=== PATIENT | male | born 1940 | race African-American/Black ===

== ENCOUNTER 2021-02-26 16:37 | Inpatient (IN) | payer MEDICARE, OTHER ==
[~2021-02-26] VITALS: Ht 182.2 cm; Wt 75.8 kg
[2021-02-26] MEDS ORDERED: LEVETIRACETAM 1,000 MG in SODIUM CHLORIDE 0.9% 100 ML IV SCH (17:30)
[2021-02-26 17:51] LABS: BASOPHILS % 0.4 % (0.0-2.0); EOSINOPHILS % 0.7 % (0.0-5.0); HEMATOCRIT. 37.8 % (42.0-52.0); HEMOGLOBIN. 12.7 g/dL (14.0-18.0); MEAN CORPUSCULAR HEMOGLOBIN 32.5 pg (28.0-32.0); MEAN CORPUSCULAR VOLUME 96.6 fL (80.0-94.0); MEAN PLATELET VOLUME 7.4 fl (7.4-10.4); MONOCYTES % 9.7 % (2.0-8.0); NEUTROPHILS % 75.2 % (40.0-76.0); PLATELET 188 x1000/uL (130-400); RED BLOOD CELL COUNT 3.91 mill/uL (4.7-6.1); RED CELL DISTRIBUTION WIDTH 15.4 % (11.6-14.6)
[2021-02-26 17:58] LABS: CHLORIDE 101 mEq/L (98-107)
[2021-02-26 18:05] LABS: ETHANOL BLOOD < 10 mg/dL
[2021-02-26 18:06] LABS: CREATINE KINASE 33 IU/L (39-308)
[2021-02-26 18:31] LABS: CLARITY URINE CLOUDY (CLEAR); COLOR URINE YELLOW (YELLOW); KETONES URINE NEGATIVE (NEGATIVE); LEUKOCYTE ESTERASE URINE 3+ (NEGATIVE); NITRITE URINE NEGATIVE (NEGATIVE); OCCULT BLOOD URINE 3+ (NEGATIVE); PROTEIN URINE 1+ (NEGATIVE)
[2021-02-26] MEDS ORDERED: FUROSEMIDE 40MG/4ML VIAL IVP NR (18:45)
[2021-02-26 18:53] LABS: *AMPHETAMINES SCREEN URINE NEGATIVE (NEGATIVE); *BARBITURATES SCREEN URINE NEGATIVE (NEGATIVE); *BENZODIAZEPINES SCREEN URINE NEGATIVE (NEGATIVE); *COCAINE SCREEN URINE NEGATIVE (NEGATIVE); METHADONE URINE SCREEN NEGATIVE (NEGATIVE); OPIATES URINE SCREEN NEGATIVE (NEGATIVE)
[2021-02-26 18:54] LABS: CANNABINOID URINE SCREEN NEGATIVE (NEGATIVE); PHENCYCLIDINE URINE SCREEN NEGATIVE (NEGATIVE)
[2021-02-26] MEDS ORDERED: CEFTRIAXONE 1 G PREMIX 50 ML IV ONE (19:45)
[2021-02-26] MEDS ORDERED: LORAZEPAM 2MG/ML CPJ IV PRN (21:00)
[2021-02-26] MEDS ORDERED: ONDANSETRON HCL 4MG/2ML INJ IV PRN (21:00)
[2021-02-26] MEDS ORDERED: DEXT 5%/0.45% NACL 1000ML 1,000 ML IV SCH (21:00)
[2021-02-26] MEDS ORDERED: ACETAMINOPHEN 325MG TABLET PO PRN (21:00)
[2021-02-26] MEDS ORDERED: CLONIDINE 0.1MG TABLET PO PRN (21:00)
[2021-02-26] MEDS ORDERED: CEFTRIAXONE 1 G PREMIX 50 ML IV SCH (21:00)
[2021-02-26] MEDS ORDERED: MAGNESIUM/ALUMINUM HYDROXIDE/SIMETHICONE 30ML UDC PO PRN (21:00)
[2021-02-26] MEDS: ENOXAPARIN 30MG/0.3ML SYR SUBCUT SCH (21:29)
[2021-02-27] VITALS: BP 137/98
[2021-02-27 08:00] VITALS: BP 147/48
[2021-02-27] MEDS ORDERED: FUROSEMIDE 40MG/4ML VIAL IV SCH (09:00)
[2021-02-27] MEDS: LEVETIRACETAM 500MG TABLET PO SCH ×2 (10:38→23:44)
[2021-02-27 12:00] VITALS: BP 108/64
[2021-02-27 16:00] VITALS: BP 140/80
[2021-02-27 16:04] LABS: BASOPHILS % 0.5 % (0.0-2.0); EOSINOPHILS % 1.4 % (0.0-5.0); HEMATOCRIT. 37.2 % (42.0-52.0); HEMOGLOBIN. 12.2 g/dL (14.0-18.0); LYMPHOCYTES % 14.1 % (20.0-50.0); MEAN CORPUSCULAR HEMOGLOBIN 32.2 pg (28.0-32.0); MEAN PLATELET VOLUME 7.9 fl (7.4-10.4); MONOCYTES % 10.9 % (2.0-8.0); NEUTROPHILS % 73.1 % (40.0-76.0); PLATELET 189 x1000/uL (130-400); RED CELL DISTRIBUTION WIDTH 15.2 % (11.6-14.6)
[2021-02-27 16:10] LABS: CHLORIDE 103 mEq/L (98-107)
[2021-02-27 18:23] LABS: VITAMIN B12 SERUM 756 pg/mL (211-911)
[2021-02-27 20:00] VITALS: BP 107/64
[2021-02-27] MEDS: ENOXAPARIN 30MG/0.3ML SYR SUBCUT SCH (23:44)
[2021-02-27] MEDS: CEFTRIAXONE 1,000 MG in DEXTROSE 5% WATER 50 ML IV SCH (23:46)
[2021-02-28] VITALS: BP 116/65
[2021-02-28 04:00] VITALS: BP 118/68
[2021-02-28 08:00] VITALS: BP 134/69
[2021-02-28] MEDS: LEVETIRACETAM 500MG TABLET PO SCH ×2 (09:46→22:24)
[2021-02-28 12:00] VITALS: BP 119/72
[2021-02-28 16:00] VITALS: BP 132/78
[2021-02-28 20:00] VITALS: BP 122/66
[2021-02-28] MEDS: CEFTRIAXONE 1,000 MG in DEXTROSE 5% WATER 50 ML IV SCH (20:00)
[2021-02-28] MEDS: ENOXAPARIN 30MG/0.3ML SYR SUBCUT SCH (22:24)
[2021-03-01] VITALS: BP 128/76
[2021-03-01 04:00] VITALS: BP 148/89
[2021-03-01 08:00] VITALS: BP 138/78
[2021-03-01] MEDS: LEVETIRACETAM 500MG TABLET PO SCH ×2 (08:23→21:27)
[2021-03-01 12:00] VITALS: BP 149/85
[2021-03-01 12:20] LABS: BASOPHILS % 0.4 % (0.0-2.0); EOSINOPHILS % 1.7 % (0.0-5.0); HEMATOCRIT. 35.1 % (42.0-52.0); HEMOGLOBIN. 11.8 g/dL (14.0-18.0); MEAN CORPUSCULAR HEMOGLOBIN 32.3 pg (28.0-32.0); MEAN CORPUSCULAR VOLUME 96.3 fL (80.0-94.0); MEAN PLATELET VOLUME 7.6 fl (7.4-10.4); MONOCYTES % 12.1 % (2.0-8.0); NEUTROPHILS % 61.8 % (40.0-76.0); PLATELET 173 x1000/uL (130-400); RED BLOOD CELL COUNT 3.65 mill/uL (4.7-6.1); RED CELL DISTRIBUTION WIDTH 15.3 % (11.6-14.6)
[2021-03-01 12:36] LABS: CHLORIDE 103 mEq/L (98-107)
[2021-03-01 16:00] VITALS: BP 137/68
[2021-03-01 20:00] VITALS: BP 112/68
[2021-03-01] MEDS: CEFTRIAXONE 1,000 MG in DEXTROSE 5% WATER 50 ML IV SCH (21:27)
[2021-03-01] MEDS: ENOXAPARIN 40MG/0.4ML SYR SUBCUT SCH (21:28)
[2021-03-02] VITALS: BP 146/81
[2021-03-02 04:00] VITALS: BP 141/70
[2021-03-02 08:00] VITALS: BP 144/90
[2021-03-02] MEDS: LEVETIRACETAM 500MG TABLET PO SCH ×2 (10:00→21:35)
[2021-03-02] MEDS: NITROFURANTOIN 100MG M/M CAPSULE PO SCH ×2 (11:33→21:35)
[2021-03-02 11:46] VITALS: BP 153/95
[2021-03-02 16:00] VITALS: BP 130/78
[2021-03-02 20:00] VITALS: BP 149/87
[2021-03-02] MEDS: ENOXAPARIN 40MG/0.4ML SYR SUBCUT SCH (21:36)
[2021-03-03] VITALS (7 sets, daily range): BP systolic 128–158; BP diastolic 79–109
[2021-03-03] MEDS: LEVETIRACETAM 500MG TABLET PO SCH ×2 (08:19→21:36)
[2021-03-03] MEDS: NITROFURANTOIN 100MG M/M CAPSULE PO SCH ×2 (08:20→21:36)
[2021-03-03] MEDS: AMLODIPINE 5MG TABLET PO SCH ×2 (12:10→21:36)
[2021-03-03] MEDS: ENOXAPARIN 40MG/0.4ML SYR SUBCUT SCH (21:38)
== END 2021-03-03 23:20 | DRG 100 ==
LOC: ER 16:37 → ENRESERV 22:12 → 8WST 02-27 00:14
PROVIDERS: ADMIT Hospitalist; ATTEND Hospitalist
PROC: 02HV33Z Insertion of Infusion Device into Superior Vena Cava, Percutaneous Approach (ICD-10-PCS; 2021-03-01)
PROC: B548ZZA Ultrasonography of Superior Vena Cava, Guidance (ICD-10-PCS; 2021-03-01)
PROC: 4A10X4Z Monitoring of Central Nervous Electrical Activity, External Approach (ICD-10-PCS; principal; 2021-03-02)
DX: R56.9 Unspecified convulsions (principal); E43 Unspecified severe protein-calorie malnutrition; N17.9 Acute kidney failure, unspecified; N39.0 Urinary tract infection, site not specified; R32 Unspecified urinary incontinence; Z20.822 Contact with and (suspected) exposure to COVID-19; F01.50 Vascular dementia, unspecified severity, without behavioral disturbance, psychotic disturbance, mood disturbance, and anxiety; Z68.22 Body mass index [BMI] 22.0-22.9, adult
CPT/HCPCS: 36415; 71045; 76937; 80053; 80305; 80320; 81003; 82140; 82542; 82550; 82607; 82962; 83880; 84439; 84443; 84484; 85025; 87077; 87186; 87426; 93306; 93970; 95816; 97162; 99285; C1725; C1893; J0696; J1650; J1940; J1953; J7050; J7060; G0480

== ENCOUNTER 2021-03-03 23:20 | Inpatient (IN) | payer MEDICARE, OTHER ==
[~2021-03-03] VITALS: Ht 180.3 cm; Wt 90.3 kg
[2021-03-03 23:25] VITALS: BP 129/83
[2021-03-04] MEDS ORDERED: CLONIDINE 0.1MG TABLET PO PRN
[2021-03-04] MEDS ORDERED: ONDANSETRON 4MG ODT PO PRN
[2021-03-04] MEDS ORDERED: ACETAMINOPHEN 325MG TABLET PO PRN
[2021-03-04 08:30] VITALS: BP 109/76
[2021-03-04] MEDS: LEVETIRACETAM 500MG TABLET PO SCH ×2 (09:05→20:47)
[2021-03-04] MEDS: NITROFURANTOIN 100MG M/M CAPSULE PO SCH ×2 (09:05→20:47)
[2021-03-04] MEDS: AMLODIPINE 5MG TABLET PO SCH ×2 (09:06→20:47)
[2021-03-04] MEDS ORDERED: NA PHOS,M-B/NA PHOS,DI-BA ENEMA 118ML PR NR (15:45)
[2021-03-04] MEDS: DOCUSATE SODIUM 100MG CAPSULE PO SCH (17:00)
[2021-03-04 20:00] VITALS: BP 128/87
[2021-03-04] MEDS: ENOXAPARIN 40MG/0.4ML SYR SUBCUT SCH (20:49)
[2021-03-05 08:00] VITALS: BP 121/66
[2021-03-05] MEDS: DOCUSATE SODIUM 100MG CAPSULE PO SCH ×2 (08:53→18:20)
[2021-03-05] MEDS: LEVETIRACETAM 500MG TABLET PO SCH ×2 (08:53→21:57)
[2021-03-05] MEDS: NITROFURANTOIN 100MG M/M CAPSULE PO SCH ×2 (08:55→21:57)
[2021-03-05] MEDS: AMLODIPINE 5MG TABLET PO SCH ×2 (08:57→21:59)
[2021-03-05] MEDS: ENOXAPARIN 40MG/0.4ML SYR SUBCUT SCH (08:57)
[2021-03-05] MEDS: BISACODYL 5MG TABLET PO PRN (08:58)
[2021-03-05] MEDS: MAGNESIUM/ALUMINUM HYDROXIDE/SIMETHICONE 30ML UDC PO PRN (08:58)
[2021-03-05] MEDS ORDERED: NA PHOS,M-B/NA PHOS,DI-BA ENEMA 118ML PR PRN (14:00)
[2021-03-05 18:07] VITALS: BP 129/83
[2021-03-05 20:00] VITALS: BP 117/73
[2021-03-06] MEDS ORDERED: APIX5TAB4 PO (01:27)
[2021-03-06] MEDS ORDERED: METO-396 PO (01:27)
[2021-03-06] MEDS ORDERED: ATOR-2 PO (01:27)
[2021-03-06] MEDS ORDERED: PANT40TA51 PO (01:27)
[2021-03-06] MEDS ORDERED: MINE50OI TP (01:27)
[2021-03-06] MEDS ORDERED: AMI2 PO (01:27)
[2021-03-06 07:53] VITALS: BP 151/81
[2021-03-06] MEDS: LEVETIRACETAM 500MG TABLET PO SCH ×2 (09:27→21:23)
[2021-03-06] MEDS: AMLODIPINE 5MG TABLET PO SCH ×2 (09:28→21:00)
[2021-03-06] MEDS: NITROFURANTOIN 100MG M/M CAPSULE PO SCH ×2 (09:28→21:23)
[2021-03-06] MEDS: DOCUSATE SODIUM 100MG CAPSULE PO SCH ×2 (09:29→16:18)
[2021-03-06] MEDS: ENOXAPARIN 40MG/0.4ML SYR SUBCUT SCH (09:37)
[2021-03-06 20:00] VITALS: BP 108/57
[2021-03-07 08:11] VITALS: BP 137/78
[2021-03-07 08:31] LABS: BASOPHILS % 0.5 % (0.0-2.0); EOSINOPHILS % 1.4 % (0.0-5.0); HEMATOCRIT. 35.7 % (42.0-52.0); LYMPHOCYTES % 24.7 % (20.0-50.0); MEAN CORPUSCULAR VOLUME 95.4 fL (80.0-94.0); MEAN PLATELET VOLUME 7.6 fl (7.4-10.4); MONOCYTES % 9.5 % (2.0-8.0); NEUTROPHILS % 63.9 % (40.0-76.0); PLATELET 133 x1000/uL (130-400); RED BLOOD CELL COUNT 3.75 mill/uL (4.7-6.1); RED CELL DISTRIBUTION WIDTH 15.9 % (11.6-14.6)
[2021-03-07] MEDS: LEVETIRACETAM 500MG TABLET PO SCH ×2 (11:26→20:12)
[2021-03-07] MEDS: NITROFURANTOIN 100MG M/M CAPSULE PO SCH ×2 (11:26→20:12)
[2021-03-07] MEDS: AMLODIPINE 5MG TABLET PO SCH ×2 (11:26→20:14)
[2021-03-07] MEDS: DOCUSATE SODIUM 100MG CAPSULE PO SCH ×2 (11:26→17:48)
[2021-03-07 20:00] VITALS: BP 103/74
[2021-03-07] MEDS: ATORVASTATIN CALCIUM 40MG TABLET PO SCH (23:00)
[2021-03-07] MEDS: AMIODARONE HCL 200 MG TABLET PO SCH (23:00)
[2021-03-08] MEDS: PANTOPRAZOLE 40MG DR TABLET PO SCH (06:28)
[2021-03-08 08:00] VITALS: BP 121/82
[2021-03-08] MEDS: PANTOT AC/MIN OIL/PET HY-PHL OINT (AQUAPHOR) TOP SCH (09:00)
[2021-03-08] MEDS ORDERED: METOPROLOL SUCCINATE 50MG ER TABLET PO SCH (09:00)
[2021-03-08] MEDS: NITROFURANTOIN 100MG M/M CAPSULE PO SCH ×2 (10:10→21:45)
[2021-03-08] MEDS: DOCUSATE SODIUM 100MG CAPSULE PO SCH ×2 (10:10→17:00)
[2021-03-08] MEDS: AMLODIPINE 5MG TABLET PO SCH ×2 (10:11→21:45)
[2021-03-08] MEDS: LEVETIRACETAM 500MG TABLET PO SCH ×2 (10:11→21:45)
[2021-03-08] MEDS: AMIODARONE HCL 200 MG TABLET PO SCH (10:11)
[2021-03-08] MEDS: METOPROLOL TARTRATE 25MG TABLET PO SCH ×2 (10:11→21:45)
[2021-03-08 20:00] VITALS: BP 108/57
[2021-03-08] MEDS: ATORVASTATIN CALCIUM 40MG TABLET PO SCH (21:45)
[2021-03-09] MEDS: PANTOPRAZOLE 40MG DR TABLET PO SCH (06:01)
[2021-03-09 08:00] VITALS: BP 127/82
[2021-03-09] MEDS: NITROFURANTOIN 100MG M/M CAPSULE PO SCH (09:00)
[2021-03-09] MEDS: DOCUSATE SODIUM 100MG CAPSULE PO SCH ×2 (10:19→17:20)
[2021-03-09] MEDS: LEVETIRACETAM 500MG TABLET PO SCH ×2 (10:19→21:24)
[2021-03-09] MEDS: AMIODARONE HCL 200 MG TABLET PO SCH (10:19)
[2021-03-09] MEDS: AMLODIPINE 5MG TABLET PO SCH ×2 (10:20→21:24)
[2021-03-09] MEDS: METOPROLOL TARTRATE 25MG TABLET PO SCH ×2 (10:21→21:25)
[2021-03-09] MEDS: PANTOT AC/MIN OIL/PET HY-PHL OINT (AQUAPHOR) TOP SCH (10:28)
[2021-03-09] MEDS: ATORVASTATIN CALCIUM 40MG TABLET PO SCH (21:25)
[2021-03-10] MEDS: FAMOTIDINE 20MG TABLET PO SCH (06:30)
[2021-03-10 07:55] VITALS: BP 117/70
[2021-03-10] MEDS: DOCUSATE SODIUM 100MG CAPSULE PO SCH ×2 (10:00→17:26)
[2021-03-10] MEDS: LEVETIRACETAM 500MG TABLET PO SCH ×2 (10:01→21:00)
[2021-03-10] MEDS: METOPROLOL TARTRATE 25MG TABLET PO SCH ×2 (10:02→20:51)
[2021-03-10] MEDS: AMIODARONE HCL 200 MG TABLET PO SCH (10:03)
[2021-03-10] MEDS: AMLODIPINE 5MG TABLET PO SCH ×2 (10:03→20:52)
[2021-03-10] MEDS: MAGNESIUM/ALUMINUM HYDROXIDE/SIMETHICONE 30ML UDC PO PRN (10:04)
[2021-03-10] MEDS: BISACODYL 5MG TABLET PO PRN (10:04)
[2021-03-10] MEDS: PANTOT AC/MIN OIL/PET HY-PHL OINT (AQUAPHOR) TOP SCH (10:05)
[2021-03-10 20:00] VITALS: BP 106/46
[2021-03-10] MEDS: ATORVASTATIN CALCIUM 40MG TABLET PO SCH (21:00)
[2021-03-11] MEDS: FAMOTIDINE 20MG TABLET PO SCH (06:09)
[2021-03-11 08:00] VITALS: BP 137/96
[2021-03-11] MEDS: LEVETIRACETAM 500MG TABLET PO SCH ×2 (08:18→21:01)
[2021-03-11] MEDS: DOCUSATE SODIUM 100MG CAPSULE PO SCH ×2 (08:18→16:48)
[2021-03-11] MEDS: METOPROLOL TARTRATE 25MG TABLET PO SCH ×2 (08:18→20:56)
[2021-03-11] MEDS: AMIODARONE HCL 200 MG TABLET PO SCH (08:22)
[2021-03-11] MEDS: AMLODIPINE 5MG TABLET PO SCH ×2 (08:22→21:00)
[2021-03-11] MEDS: PANTOT AC/MIN OIL/PET HY-PHL OINT (AQUAPHOR) TOP SCH (08:27)
[2021-03-11] MEDS: APIXABAN 5 MG TABLET PO SCH ×2 (13:41→16:48)
[2021-03-11 20:00] VITALS: BP 139/70
[2021-03-11] MEDS: ATORVASTATIN CALCIUM 40MG TABLET PO SCH (21:01)
[2021-03-12] MEDS: FAMOTIDINE 20MG TABLET PO SCH (06:37)
[2021-03-12 08:17] VITALS: BP 135/78
[2021-03-12] MEDS: AMIODARONE HCL 200 MG TABLET PO SCH (09:17)
[2021-03-12] MEDS: LEVETIRACETAM 500MG TABLET PO SCH ×2 (09:17→21:10)
[2021-03-12] MEDS: DOCUSATE SODIUM 100MG CAPSULE PO SCH ×2 (09:17→17:08)
[2021-03-12] MEDS: PANTOT AC/MIN OIL/PET HY-PHL OINT (AQUAPHOR) TOP SCH (09:17)
[2021-03-12] MEDS: APIXABAN 5 MG TABLET PO SCH ×2 (09:17→17:08)
[2021-03-12] MEDS: AMLODIPINE 5MG TABLET PO SCH ×2 (09:17→21:11)
[2021-03-12] MEDS: METOPROLOL TARTRATE 25MG TABLET PO SCH ×2 (09:18→21:11)
[2021-03-12] MEDS: TAMSULOSIN HCL 0.4MG SR CAPSULE PO SCH (14:33)
[2021-03-12 14:46] LABS: CLARITY URINE TURBID (CLEAR); COLOR URINE YELLOW (YELLOW); KETONES URINE NEGATIVE (NEGATIVE); LEUKOCYTE ESTERASE URINE 3+ (NEGATIVE); NITRITE URINE NEGATIVE (NEGATIVE); OCCULT BLOOD URINE 3+ (NEGATIVE); PH URINE 5.5 (4.5-8.0); PROTEIN URINE 1+ (NEGATIVE); SPECIFIC GRAVITY URINE 1.012 (1.005-1.030); UROBILINOGEN URINE 0.2 E.U./dL (0.2-1.0)
[2021-03-12] MEDS: LEVOFLOXACIN 250MG TABLET PO SCH (17:08)
[2021-03-12 18:00] LABS: BASOPHILS % 0.4 % (0.0-2.0); EOSINOPHILS % 0.4 % (0.0-5.0); HEMATOCRIT. 32.6 % (42.0-52.0); LYMPHOCYTES % 17.4 % (20.0-50.0); MEAN CORPUSCULAR HEMOGLOBIN 32.1 pg (28.0-32.0); MEAN CORPUSCULAR VOLUME 95.2 fL (80.0-94.0); MEAN PLATELET VOLUME 7.5 fl (7.4-10.4); MONOCYTES % 8.5 % (2.0-8.0); NEUTROPHILS % 73.3 % (40.0-76.0); PLATELET 151 x1000/uL (130-400); RED BLOOD CELL COUNT 3.42 mill/uL (4.7-6.1); RED CELL DISTRIBUTION WIDTH 16.1 % (11.6-14.6)
[2021-03-12 20:00] VITALS: BP 105/69
[2021-03-12] MEDS: ATORVASTATIN CALCIUM 40MG TABLET PO SCH (21:11)
[2021-03-13] MEDS: FAMOTIDINE 20MG TABLET PO SCH (06:10)
[2021-03-13 08:00] VITALS: BP 110/68
[2021-03-13] MEDS: PANTOT AC/MIN OIL/PET HY-PHL OINT (AQUAPHOR) TOP SCH (08:46)
[2021-03-13] MEDS: TAMSULOSIN HCL 0.4MG SR CAPSULE PO SCH (08:46)
[2021-03-13] MEDS: APIXABAN 5 MG TABLET PO SCH ×2 (08:47→16:30)
[2021-03-13] MEDS: METOPROLOL TARTRATE 25MG TABLET PO SCH ×2 (08:47→20:23)
[2021-03-13] MEDS: DOCUSATE SODIUM 100MG CAPSULE PO SCH ×2 (08:47→16:30)
[2021-03-13] MEDS: AMLODIPINE 5MG TABLET PO SCH ×2 (08:47→20:23)
[2021-03-13] MEDS: LEVETIRACETAM 500MG TABLET PO SCH ×2 (08:47→20:22)
[2021-03-13] MEDS: AMIODARONE HCL 200 MG TABLET PO SCH (08:47)
[2021-03-13] MEDS ORDERED: TRAMADOL 50MG TABLET PO PRN (10:30)
[2021-03-13] MEDS: LEVOFLOXACIN 250MG TABLET PO SCH (10:38)
[2021-03-13] MEDS ORDERED: NALOXONE HCL 0.4MG/ML VIAL IV PRN (10:45)
[2021-03-13 20:00] VITALS: BP 128/67
[2021-03-13] MEDS: ATORVASTATIN CALCIUM 40MG TABLET PO SCH (20:22)
[2021-03-14] MEDS: FAMOTIDINE 20MG TABLET PO SCH (06:01)
[2021-03-14 08:00] VITALS: BP 101/65
[2021-03-14] MEDS: AMLODIPINE 5MG TABLET PO SCH ×2 (09:00→20:25)
[2021-03-14] MEDS: AMIODARONE HCL 200 MG TABLET PO SCH (09:03)
[2021-03-14] MEDS: LEVETIRACETAM 500MG TABLET PO SCH ×2 (09:03→20:24)
[2021-03-14] MEDS: APIXABAN 5 MG TABLET PO SCH ×2 (09:03→18:18)
[2021-03-14] MEDS: DOCUSATE SODIUM 100MG CAPSULE PO SCH ×2 (09:03→18:18)
[2021-03-14] MEDS: TAMSULOSIN HCL 0.4MG SR CAPSULE PO SCH (09:04)
[2021-03-14] MEDS: METOPROLOL TARTRATE 25MG TABLET PO SCH ×2 (09:05→20:25)
[2021-03-14] MEDS: LEVOFLOXACIN 250MG TABLET PO SCH (15:11)
[2021-03-14] MEDS: PANTOT AC/MIN OIL/PET HY-PHL OINT (AQUAPHOR) TOP SCH (15:12)
[2021-03-14 20:00] VITALS: BP 116/65
[2021-03-14] MEDS: ATORVASTATIN CALCIUM 40MG TABLET PO SCH (20:24)
[2021-03-15] MEDS: FAMOTIDINE 20MG TABLET PO SCH (06:02)
[2021-03-15 08:00] VITALS: BP 97/58
[2021-03-15] MEDS: APIXABAN 5 MG TABLET PO SCH ×2 (08:49→17:44)
[2021-03-15] MEDS: AMLODIPINE 5MG TABLET PO SCH ×2 (08:49→21:00)
[2021-03-15] MEDS: LEVETIRACETAM 500MG TABLET PO SCH ×2 (08:49→22:11)
[2021-03-15] MEDS: AMIODARONE HCL 200 MG TABLET PO SCH (08:49)
[2021-03-15] MEDS: DOCUSATE SODIUM 100MG CAPSULE PO SCH ×2 (08:49→17:44)
[2021-03-15] MEDS: TAMSULOSIN HCL 0.4MG SR CAPSULE PO SCH (08:49)
[2021-03-15 08:50] VITALS: BP 111/60
[2021-03-15] MEDS: PANTOT AC/MIN OIL/PET HY-PHL OINT (AQUAPHOR) TOP SCH (08:50)
[2021-03-15] MEDS: METOPROLOL TARTRATE 25MG TABLET PO SCH ×2 (08:50→21:00)
[2021-03-15] MEDS: LEVOFLOXACIN 250MG TABLET PO SCH (12:15)
[2021-03-15 18:01] VITALS: BP 107/58
[2021-03-15 20:00] VITALS: BP 104/61
[2021-03-15] MEDS: ATORVASTATIN CALCIUM 40MG TABLET PO SCH (22:11)
[2021-03-16] MEDS: FAMOTIDINE 20MG TABLET PO SCH (06:11)
[2021-03-16 08:00] VITALS: BP 123/60
[2021-03-16] MEDS: LEVETIRACETAM 500MG TABLET PO SCH ×2 (09:44→22:22)
[2021-03-16] MEDS: AMIODARONE HCL 200 MG TABLET PO SCH (09:44)
[2021-03-16] MEDS: METOPROLOL TARTRATE 25MG TABLET PO SCH ×2 (09:44→21:00)
[2021-03-16] MEDS: APIXABAN 5 MG TABLET PO SCH ×2 (09:45→18:11)
[2021-03-16] MEDS: TAMSULOSIN HCL 0.4MG SR CAPSULE PO SCH (09:45)
[2021-03-16] MEDS: AMLODIPINE 5MG TABLET PO SCH ×2 (09:45→21:00)
[2021-03-16] MEDS: PANTOT AC/MIN OIL/PET HY-PHL OINT (AQUAPHOR) TOP SCH (09:47)
[2021-03-16] MEDS: DOCUSATE SODIUM 100MG CAPSULE PO SCH ×2 (09:48→18:11)
[2021-03-16] MEDS: LINEZOLID 600MG TABLET PO SCH ×2 (16:13→22:22)
[2021-03-16 20:00] VITALS: BP 109/62
[2021-03-16] MEDS ORDERED: NITROFURANTOIN 100MG M/M CAPSULE PO SCH (21:00)
[2021-03-16] MEDS: ATORVASTATIN CALCIUM 40MG TABLET PO SCH (22:22)
[2021-03-17] MEDS: FAMOTIDINE 20MG TABLET PO SCH (06:08)
[2021-03-17 08:09] VITALS: BP 114/76
[2021-03-17] MEDS: METOPROLOL TARTRATE 25MG TABLET PO SCH (09:00)
[2021-03-17] MEDS: DOCUSATE SODIUM 100MG CAPSULE PO SCH ×2 (09:33→16:40)
[2021-03-17] MEDS: LEVETIRACETAM 500MG TABLET PO SCH (09:34)
[2021-03-17] MEDS: APIXABAN 5 MG TABLET PO SCH ×2 (09:34→16:40)
[2021-03-17] MEDS: LINEZOLID 600MG TABLET PO SCH (09:34)
[2021-03-17] MEDS: PANTOT AC/MIN OIL/PET HY-PHL OINT (AQUAPHOR) TOP SCH (09:34)
[2021-03-17] MEDS: AMLODIPINE 5MG TABLET PO SCH (09:34)
[2021-03-17] MEDS: TAMSULOSIN HCL 0.4MG SR CAPSULE PO SCH (09:34)
[2021-03-17] MEDS: AMIODARONE HCL 200 MG TABLET PO SCH (09:34)
[2021-03-17 12:26] VITALS: BP 114/76
== END 2021-03-17 17:45 | disposition home health service (06) | DRG 70 ==
PROVIDERS: ADMIT Psychiatry & Neurology Neurology; ATTEND Hospitalist
DX: G93.40 Encephalopathy, unspecified (principal); E43 Unspecified severe protein-calorie malnutrition; N17.9 Acute kidney failure, unspecified; N39.0 Urinary tract infection, site not specified; F01.50 Vascular dementia, unspecified severity, without behavioral disturbance, psychotic disturbance, mood disturbance, and anxiety; I10 Essential (primary) hypertension; R77.8 Other specified abnormalities of plasma proteins; S31.821A Laceration without foreign body of left buttock, initial encounter; X58.XXXA Exposure to other specified factors, initial encounter; N40.1 Benign prostatic hyperplasia with lower urinary tract symptoms; R33.8 Other retention of urine; B95.2 Enterococcus as the cause of diseases classified elsewhere; I87.2 Venous insufficiency (chronic) (peripheral); I73.9 Peripheral vascular disease, unspecified; Y93.89 Activity, other specified; Y92.89 Other specified places as the place of occurrence of the external cause; Y99.8 Other external cause status; Z68.27 Body mass index [BMI] 27.0-27.9, adult
CPT/HCPCS: 36415; 70551; 80048; 81003; 84153; 85025; 87077; 87186; 92523; 93923; 93970; 97110; 97116; 97150; 97163; 97166; 97530; 97535; J1650; A4315; A5200; G0103